=== PATIENT | male | born 1985 | race Two or more races ===

== ENCOUNTER → 2019-12-14 14:37 | Outpatient (BNVA) | payer OTHER, SELFPAY | PROVIDERS: PCP Nurse Practitioner Family; Referring Provider Nurse Practitioner Family; Visit Provider Internal Medicine Pulmonary Disease | DX: J45.31 Mild persistent asthma with (acute) exacerbation (principal); Z79.899 Other long term (current) drug therapy; Z87.891 Personal history of nicotine dependence | CPT/HCPCS: 99203; 99204 ==

== ENCOUNTER → 2020-01-11 10:55 | Outpatient (BNVA) | payer OTHER, SELFPAY | PROVIDERS: PCP Nurse Practitioner Family; Referring Provider Nurse Practitioner Family; Visit Provider Internal Medicine Pulmonary Disease | DX: J45.41 Moderate persistent asthma with (acute) exacerbation (principal); Z79.899 Other long term (current) drug therapy | CPT/HCPCS: 99212 ==

== ENCOUNTER → 2020-02-22 13:06 | Outpatient (BNVA) | payer OTHER, SELFPAY | PROVIDERS: PCP Nurse Practitioner Family; Visit Provider Internal Medicine Pulmonary Disease | DX: J45.901 Unspecified asthma with (acute) exacerbation (principal) | CPT/HCPCS: 99212 ==

== ENCOUNTER → 2020-03-14 11:22 | Outpatient (BNVA) | payer OTHER, SELFPAY | PROVIDERS: PCP Nurse Practitioner Family; Visit Provider Internal Medicine Pulmonary Disease | DX: J45.901 Unspecified asthma with (acute) exacerbation (principal) | CPT/HCPCS: 99212 ==

== ENCOUNTER → 2020-08-03 11:17 | Outpatient (BNVA) | payer OTHER, SELFPAY | PROVIDERS: PCP Nurse Practitioner Family; Visit Provider Internal Medicine Pulmonary Disease | DX: J45.40 Moderate persistent asthma, uncomplicated (principal); Z79.899 Other long term (current) drug therapy | CPT/HCPCS: 99212 ==

== ENCOUNTER 2021-02-02 11:12 | Outpatient (REF) | payer OTHER, SELFPAY | END 2021-02-02 11:13 | disposition home or self-care (01) | LOC: HO.LNP 11:12 | PROVIDERS: Visit Provider Physician Assistant Medical | DX: Z20.822 Contact with and (suspected) exposure to COVID-19 (principal) | CPT/HCPCS: U0003; U0005 ==